=== PATIENT | male | born 1985 | race Caucasian/White ===

== ENCOUNTER 2019-03-27 11:59 | Emergency (ER) | payer OTHER ==
[2019-03-27 12:31] VITALS: TEMP 98; BMI 57.2
--- NOTE | 2019-03-27 13:03 | PDOC ---
Attending Attestation - Resident Resident Name: Cristiano Hernandez - ED Attending Attestation I have performed the following: I have examined & evaluated the patient, The case was reviewed & discussed with the resident, I agree w/resident's findings & plan, Exceptions are as noted - HPI HPI: 03/27/19 12:58 33yo M hx asthma, HTN (no longer on meds), morbid obesity presents to the ED with CP. CP began while walking to the bathroom last night CP a/w SOB Radiates to the back and up to his neck Pain persistent since, worse with exertion but present at rest as well No family hx cardiac disease Does not feel like asthma no smoking or drug use No recent travel or immobiltiy Denies associated headache, dizziness, focal weakness/numbness. DEnies abd pain , N/V/D, urinary sxs, LE edema, calf tenderness - Physicial Exam PE: 03/27/19 17:50 GENERAL: Awake, alert, and fully oriented, in no acute distress. Morbidly obese. HEAD: No signs of trauma EYES: PERRLA, EOMI, sclera anicteric, conjunctiva clear ENT: Auricles normal inspection, hearing grossly normal, nares patent, oropharynx clear without exudates. Moist mucosa NECK: Normal ROM, supple, no lymphadenopathy, JVD, or masses LUNGS: Breath sounds equal, clear to auscultation bilaterally. No wheezes, and no crackles HEART: Regular rate and rhythm, normal S1 and S2, no murmurs, rubs or gallops ABDOMEN: Soft, nontender, normoactive bowel sounds. No guarding, no rebound. No masses EXTREMITIES: Normal range of motion, no edema. No clubbing or cyanosis. No cords, erythema, or tenderness. 2+ peripheral pulses b/l equal NEUROLOGICAL: Normal speech, cranial nerves intact, equal strength and sensation b/l SKIN: Warm, Dry, normal turgor, no rashes or lesions noted. - Medical Decision Making 03/27/19 17:52 33-year-old male presents the emergency department with pleuritic chest pain that radiates up to his neck and to his arm bilaterally. Differential includes ACS versus aortic dissection versus pulmonary embolism versus musculoskeletal pain. Initial set of labs including troponin is negative. Given concern for dissection a CTA of the chest abdomen pelvis was ordered. corn lab technician attempted CT scan, however due to patient's weight we were unable to get the CT scan. Patient persistently with chest pain, and even states as he was holding his breath for the purchasing manager/sales imaging in the CAT scan he felt a significant amount of hest pain. As such, will transfer the patient to [facility] for a CT scan ( patient preference). Pt consents for transfer and in agreement with plan. Heart Score/ECG Review - History History: Moderately suspicious - Electrocardiogram EKG: Normal - Age Age: </= 45 - Risk Factors Risk Factors Heart Score: Yes Hx Hypertension, Yes Hx Obesity Based on the list above the patient has:: 1-2 risk factors - Troponin Troponin: </= normal limit - Score Heart Score - Total: 2
--- NOTE | 2019-03-27 13:12 | PDOC ---
History of Present Illness - General Chief Complaint: Chest Pain Stated Complaint: Chest pain Time Seen by Provider: 03/27/19 12:11 History Source: Patient Exam Limitations: No Limitations - History of Present Illness Initial Comments: 03/27/19 13:10 33 yo male pmh asthma and HTN (no longer medicated since last visit to Doctor 3 years ago) and morbid obesity presents to the ED for exertional CP. Pt states after waking up to go to the bathroom last night, while walking, he noted chest pressure with radiation to his back and up to his neck bilaterally. This pain is new, never occurred before, worse on exertion and with deep breaths. Pt denies Fhx of sudden cardiac , recent travel, calf tenderness, unilateral leg swelling, F/C/N/V, abdominal pain, changes in bowel or bladder habits. Past History - Past Medical History Allergies/Adverse Reactions: Allergies Allergy/AdvReac Type Severity Reaction Status Date / Time No Known Allergies Allergy Verified 03/27/19 12:01 Home Medications: Ambulatory Orders NK [No Known Home Medication] 03/27/19 Asthma: Yes COPD: No HTN: Yes Other medical history: Obeisity - Psycho Social/Smoking Cessation Hx Smoking History: Never smoked Hx Alcohol Use: Yes (occasionally) Drug/Substance Use Hx: No Review of Systems - Review of Systems Constitutional: Yes: Symptoms Reported HEENTM: Yes: Symptoms Reported Respiratory: Yes: Symptoms reported Cardiac (ROS): Yes: Symptoms Reported ABD/GI: Yes: Symptoms Reported : Yes: Symptoms Reported Musculoskeletal: Yes: Symptoms Reported Integumentary: Yes: Symptoms Reported *Physical Exam - Vital Signs Last Vital Signs Temp Pulse Resp BP Pulse Ox 98 F 91 H 19 145/118 H 98 03/27/19 12:01 03/27/19 12:01 03/27/19 12:01 03/27/19 12:03/27/19 12:01 - Physical Exam General Appearance: Yes: Nourished, Appropriately Dressed. No: Apparent Distress HEENT: positive: EOMI Neck: positive: Supple. negative: Carotid bruit Respiratory/Chest: positive: Lungs Clear, Normal Breath Sounds. negative: Accessory Muscle Use, Rapid RR, Crackles, Rales, Rhonchi, Stridor, Wheezing Cardiovascular: positive: Regular Rhythm, Regular Rate, S1, S2. negative: Edema , JVD, Murmur Vascular Pulses: Dorsalis-Pedis (R): 4+, Doralis-Pedis (L): 4+ Gastrointestinal/Abdominal: positive: Flat, Soft. negative: Pulsatile Mass, Protuberent, Distended, Guarding, Rebound, Tenderness Musculoskeletal: negative: CVA Tenderness Extremity: positive: Normal Capillary Refill, Normal Inspection, Normal Range of Motion Integumentary: positive: Normal Color, Dry, Warm Neurologic: positive: Fully Oriented, Alert, Normal Mood/Affect, Normal Response , Motor Strength 07/06 ED Treatment Course - LABORATORY CBC & Chemistry Diagram: 03/27/19 13:10 03/27/19 13:40 - RADIOLOGY Radiology Studies Ordered: Category Date Time Status CHEST PA & LAT [RAD] Stat Radiology 03/27/19 12:51 Ordered Medical Decision Making - Medical Decision Making 33 yo male pmh asthma and HTN (no longer medicated since last visit to Doctor 3 years ago) and morbid obesity presents to the ED for exertional CP. Pt states after waking up to go to the bathroom last night, while walking, he noted chest pressure with radiation to his back and up to his neck bilaterally. This pain is new, never occurred before, worse on exertion and with deep breaths. Pt denies Fhx of sudden cardiac , recent travel, calf tenderness, unilateral leg swelling, F/C/N/V, abdominal pain, changes in bowel or bladder habits. Vitals stable Pt has multiple commodities, likely will require CTA for dissection r/o due to concerning story if labs normal 03/27/19 17:57 Labs wnl including trop CT scanner can not accommodate pt weight Discussed case with Dr[facility], agrees to have he pt transferred due to have CT dissection scan done with knowledge that our CT scanner can not accommodate the patient 03/27/19 18:44 Transport has arrived and pt DC safely Discharge - Discharge Information Problems reviewed: Yes Clinical Impression/Diagnosis: Chest pain Condition: Stable Disposition: TRANSFER ACUTE CARE/OTHER HOSP - Follow up/Referral - Patient Discharge Instructions - Post Discharge Activity
[2019-03-27 13:42] LABS: HEMATOCRIT 44.3 % (35.4-49); HEMOGLOBIN 14.6 GM/dl (11.7-16.9); MCH 26.5 pg (25.7-33.7); MCHC 32.9 g/dl (32.0-35.9); MEAN CELL VOLUME 80.5 fl (80-96); MEAN PLT VOLUME 9.3 fl (7.5-11.1); PLATELET COUNT 255 K/MM3 (134-434); WHITE BLOOD COUNT 10.1 K/mm3 (4.0-10.8)
[2019-03-27 14:08] LABS: ACTIVATED PTT 35.4 SECONDS (25.2-36.5)
[2019-03-27 14:10] LABS: ALBUMIN 3.3 g/dl (3.4-5.0); BILIRUBIN,TOTAL 0.5 mg/dl (0.2-1); CALCIUM 7.4 mg/dl (8.5-10); CREATININE 0.7 mg/dl (0.55-1.3); MAGNESIUM 1.5 mg/dL (1.8-2.4); POTASSIUM 3.6 mmol/L (3.5-5.1); TOT PROT 5.9 g/dl (6.4-8.2)
[2019-03-27 14:12] LABS: INR 1.32 (0.82-1.09); PROTHROMBIN TIME (PATIENT) 14.7 SEC (10.2-13.0)
[2019-03-27 14:13] LABS: PLATELET ESTIMATE ADEQUATE
[2019-03-27 18:17] VITALS: BP 129/75
[2019-03-27 18:51] VITALS: PULSE 76
--- NOTE | 2019-03-28 10:35 | EKG ---
Test Reason : Blood Pressure : / mmHG Vent. Rate : 080 BPM Atrial Rate : 080 BPM P-R Int : 180 ms QRS Dur : 098 ms QT Int : 372 ms P-R-T Axes : 024 067 035 degrees QTc Int : 429 ms NORMAL SINUS RHYTHM NORMAL ECG NO PREVIOUS ECGS AVAILABLE Confirmed by BAM NAIR MD ([id number]) on 03/28/2019 10:35:40 AM Referred By: Confirmed By:BAM NAIR MD
== END 2019-03-27 19:00 | disposition short-term general hospital (02) ==
LOC: FER 11:59
DX: R07.9 Chest pain, unspecified (principal); I10 Essential (primary) hypertension; J45.909 Unspecified asthma, uncomplicated; E66.01 Morbid (severe) obesity due to excess calories
CPT/HCPCS: 36415; 71046-TC-FY; 80053; 82550; 83735; 83880; 84484; 85025; 85610; 85730; 93005; 99285-25